=== PATIENT | female | born 1985 | race Caucasian/White ===

== ENCOUNTER → 2024-02-23 16:54 | Outpatient (REF) | payer OTHER, SELFPAY | LOC: HWRAD 16:54 | PROVIDERS: ATTENDING PHYSICIAN Nurse Practitioner | DX: M54.50 Low back pain, unspecified (principal) | CPT/HCPCS: 72110 ==

== ENCOUNTER → 2024-03-01 08:59 | Outpatient (REF) | payer OTHER, SELFPAY | LOC: HWRAD 08:59 | PROVIDERS: ATTENDING PHYSICIAN Nurse Practitioner | DX: M54.2 Cervicalgia (principal) | CPT/HCPCS: 72050; 72072 ==

== ENCOUNTER → 2024-06-01 10:04 | Outpatient (REF) | payer OTHER, SELFPAY | LOC: WDC 10:04 | PROVIDERS: ATTENDING PHYSICIAN Internal Medicine | DX: N64.4 Mastodynia (principal) | CPT/HCPCS: 76642; 77062; 77066 ==

== ENCOUNTER → 2024-07-04 15:16 | Outpatient (REF) | payer OTHER, SELFPAY | LOC: RAD 15:16 | PROVIDERS: ATTENDING PHYSICIAN Nurse Practitioner | DX: R07.89 Other chest pain (principal); R00.0 Tachycardia, unspecified; R06.02 Shortness of breath | CPT/HCPCS: 71275; Q9967 ==

== ENCOUNTER → 2024-08-04 10:18 | Outpatient (REF) | payer OTHER, SELFPAY | LOC: RCS 10:18 | PROVIDERS: ATTENDING PHYSICIAN Nurse Practitioner Adult Health | DX: R00.2 Palpitations (principal) | CPT/HCPCS: 93225; 93226 ==

== ENCOUNTER → 2024-11-07 09:42 | Outpatient (REF) | payer OTHER, SELFPAY | LOC: HWRAD 09:42 | PROVIDERS: ATTENDING PHYSICIAN Nurse Practitioner Adult Health | DX: R22.2 Localized swelling, mass and lump, trunk (principal) | CPT/HCPCS: 76536 ==